=== PATIENT | male | born 1990 | race Caucasian/White ===

== ENCOUNTER 2019-06-02 21:38 | Inpatient (IN) | payer MEDICAID, OTHER ==
[~2019-06-02] VITALS: Ht 172.7 cm; Wt 63.5 kg
[2019-06-02 21:38] VITALS: BP 131/86
[2019-06-02] MEDS ORDERED: NACL 0.9% 1,000 ML IV ONE (21:50)
--- NOTE | 2019-06-02 21:50 | NUR ---
29 Y/O MALE BIB FRIEND C/O FALL/LACERATION TO HEAD. PT. AND FRIENDS WERE DRINKING. GIRLFRIEND FOUND HIM DOWN ON THE FLOOR S/P FALL AFTER DRINKING ALCOHOL. PATIENT IS ALTERED AND RESPONDS TO NAME AND VOICE; GCS: 10. PUPILS ARE REACTIVE TO LIGHT. LEFT CONSTRICTS MORE THAN RIGHT APPROX 4MM. 2-3 CM LACERATION NOTED; STAPLED. 20 GUAGE ON LAC. NO ACTIVE BLEEDING AT THIS TIME. ERMD AWARE OF STATUS. SIDERAILS X1. PLACED ON MONITOR. ALLERGIES UNKNOWN AND PREVIOUS MEDICAL HX UNKNOWN
[2019-06-02 22:29] LABS: BASOPHILS % (AUTO) 0.1 % (0.0-2.0); EOSINOPHILS % (AUTO) 0.1 % (0.0-4.0); HEMOGLOBIN 15.4 g/dL (12.0-18.0); LYMPHOCYTES # (AUTO) 1.1 K/uL (2.0-11.5); LYMPHOCYTES % (AUTO) 17.5 % (20.5-51.1); MEAN CORPUSCULAR HEMOGLOBIN 31 pg (27-31); MEAN CORPUSCULAR HGB CONC 33 g/dL (33-37); MEAN CORPUSCULAR VOLUME 91.3 fL (80-94); MONOCYTES # (AUTO) 0.3 K/uL (0.8-1.0); NEUTROPHILS # (AUTO) 4.9 K/uL (1.8-7.7); NEUTROPHILS % (AUTO) 78.3 % (42.2-75.2); PLATELET COUNT (AUTO) 236 K/uL (140-450); RED BLOOD CELL COUNT(AUTO) 5.04 MIL/uL (4.20-6.10); WHITE BLOOD COUNT (AUTO) 6.3 K/uL (4.8-10.8)
[2019-06-02 22:39] LABS: ANION GAP 17.6 (8-16); CARBON DIOXIDE 25.7 mmol/L (21-32); POTASSIUM 3.3 mmol/L (3.5-5.1)
[2019-06-02 22:47] LABS: ALBUMIN 4.7 g/dL (3.4-5.0); TOTAL BILIRUBIN 0.8 mg/dL (0.0-1.0)
--- NOTE | 2019-06-02 23:50 | NUR ---
Patient will be admitted to care of DR. NATARAJAN . Admited to TELE. Will go to [id number]. Belongings list completed. Report to RUBEN LEWIS .
--- NOTE | 2019-06-02 23:50 | NUR ---
RECEIVED BEDSIDE REPORT FROM [facility]. PT IS AAOX1. ON ROOM AIR RESPIRATIONS ARE EQUAL AND UNLABORED. LUNG SOUNDS ARE CLEAR. PT SPEAKS CLEARLY BUT NOT COOPERATIVE AND LAUGHING WHEN ASKED QUESTIONS FREQUENTLY STICKS UP MIDDLE FINGER TO RN. GIRLFRIEND IS AT BEDSIDE. PT WITH SUPERFICIAL HEAD LACERATION WITH 2 FEDE DONE IN ER WILL TAKE PHOTOS. OTHER GRESHAM PT WITH SMALL BRUISE ON KNEE. RAC 20G PT KEEPS REMOVING IV IN ER. PT HAS RECEIVED APRROX 700CC OF NS. CAN AMBULATE WITH ASSIST. VS: 111/80 110 17, 97% RA, 97.8. MRSA SWAB OBTAINED. ORIENTED PT TO ROOM,STAFF,CALL LIGHT VISITING HOURS. WILL ROUND FREQUENTLY.
--- NOTE | 2019-06-03 00:13 | NUR ---
ORDERS RECEIVED FROM DR BUCHANAN. WILL F/U
[2019-06-03] MEDS ORDERED: ACETAMINOPHEN 325 MG TAB PO PRN (00:20)
[2019-06-03] MEDS ORDERED: LORazepam 2 MG/ML VIAL IM/IVP PRN (00:20)
[2019-06-03] MEDS ORDERED: DEXT 5% /NACL 0.9% 1,000 ML IV SCH (00:20)
[2019-06-03] MEDS ORDERED: ONDANSETRON 4 MG/2 ML VIAL IVP PRN (00:20)
[2019-06-03 00:30] VITALS: BP 111/80
[2019-06-03] MEDS ORDERED: KCL 20 MEQ/WATER INJ PREMIX 100 ML IV SCH (01:00)
[2019-06-03] MEDS ORDERED: POTASSIUM CHLORIDE 10 MEQ TABER PO SCH (01:00)
--- NOTE | 2019-06-03 01:30 | NUR ---
PATIENT REFUSED ALL MEDICATIONS. STATES, "I WANT TO GO HOME, I FEEL BETTER." I EXPLAINED HE NEEDS TO STAY TO MONITOR FOR WITHDRAWS DOCTOR WILL SEE HIM TODAY IN THE MORNING. PT STATES, "YOU KNOW WHAT FUCK YOU, FUCK THIS HOSPITAL I WANT TO GO HOME. LOOK AT MY LADY SHES COVERED IN BLOOD WE NEED TO GO." PT KEPT STANDING UP AND SPEAKING VIOLENTLY HE THREW THE BED MATTRESS ON FLOOR. KEPT LAUGHING WHENEVER I TRIED TO SPEAK. WILL PAGED REGARDING PT WANTING TO AMA.
--- NOTE | 2019-06-03 01:35 | NUR ---
SPOKE WITH DR BUCHANAN OK FOR HIM TO GO HOME IF SIGNING AMA. PT SIGN FORM. EXPLAINED ALL RISKED OF SIGNING AMA. VERBALIZED UNDERSTANDING. I REMOVED NAME BAND. REMOVED IV IV CATHER IS INTACT. PT WITH STEADY GAIT. PER GIRLFRIEND HER FAMILY WILL COME TO PICK THEM UP. EXPLAINED TO GIRLFRIEND SINCE HE SIGNED AMA THERE IS NO DISCHARGE INSTRUCTION FROM DOCTOR. PT TO CLEAN WOUND WITH NS AND PAT DRY. RETURN FOR ANY WORSENING S/S OF ALCOHOL OR S/S OF INFECTION SUCH REDNESS, COLORED DISCHARGE, SWELLING, FOUL SMELLING AND RETURN TO ER TO GET FEDE REMOVED.
--- NOTE | 2019-06-03 02:05 | NUR ---
PATIENT LEFT IN STABLE CONDITION. WHEELED OUT WITH GIRLFRIEND WHO IS AA0 X4. GIRLFRIEND DENIES DRINKING ANY ALCOHOL. ALL BELONGINGS WITH PATIENT.
[2019-06-03] MEDS ORDERED: POTASSIUM CHLORIDE 10 MEQ TABER PO ONE (05:00)
--- NOTE | 2019-06-03 08:50 | NUR ---
WOUND CARE CONSULT NOT DONE, PT. DISCHARGED.
[2019-06-03] MEDS ORDERED: MULTIVITAMIN-12 10 ML, THIAMINE 100 MG, MAGNESIUM SULFATE 50% 2,000 MG, FOLIC ACID 1 MG... IV SCH ×5 (09:00)
== END 2019-06-03 02:00 | disposition left against medical advice (07) | DRG 384 ==
LOC: MED 21:38 → MTU 23:29
PROVIDERS: ADMIT Internal Medicine Pulmonary Disease; ATTEND Internal Medicine Pulmonary Disease
PROC: 0HQ0XZZ Repair Scalp Skin, External Approach (ICD-10-PCS; principal; 2019-06-02)
DX: S01.01XA Laceration without foreign body of scalp, initial encounter (principal); F10.129 Alcohol abuse with intoxication, unspecified; W18.30XA Fall on same level, unspecified, initial encounter; Z53.21 Procedure and treatment not carried out due to patient leaving prior to being seen by health care provider; Y90.8 Blood alcohol level of 240 mg/100 ml or more; Y93.89 Activity, other specified; Y92.89 Other specified places as the place of occurrence of the external cause; Y99.8 Other external cause status
CPT/HCPCS: 36415; 70450; 80053; 85025; 87081; 96360; 99291; A9153; G0482; J2060; J3411; J3475; J3480; J3490; J7030

== ENCOUNTER 2019-06-11 18:09 | Emergency (ER) | payer OTHER ==
[~2019-06-11] VITALS: Ht 170.2 cm; Wt 53.5 kg
[2019-06-11 18:17] VITALS: BP 126/87
--- NOTE | 2019-06-11 18:27 | NUR ---
PT BIB SELF FOR STAPLE REMOVAL. PT HAD FEDE PLACED HERE LAST MONDAY. PAIN AT 2/10 WITH PALPATION, TX WITH MARIJUAN WITH RELIEF. VSS. ER TO SEE PT. MEDHX:COLIN RX:DENIES
--- NOTE | 2019-06-11 18:46 | NUR ---
Patient discharged with v/s stable. Written and verbal after care instructions given and explained. Patient verbalized understanding. Ambulatory with steady gait. All questions addressed prior to discharge. Advised to follow up with PMD.
== END 2019-06-11 18:46 | disposition home or self-care (01) ==
LOC: MED 18:09
DX: S01.01XD Laceration without foreign body of scalp, subsequent encounter (principal); X58.XXXD Exposure to other specified factors, subsequent encounter
CPT/HCPCS: 99281

== ENCOUNTER 2020-04-27 17:11 | Emergency (ER) | payer OTHER ==
[~2020-04-27] VITALS: Ht 170.2 cm; Wt 58.1 kg
[2020-04-27 17:18] VITALS: BP 139/95
--- NOTE | 2020-04-27 17:25 | NUR ---
C/O CP 11/11 POST ALCOHOL WITHDRAWS TODAY AND MAURIJUANA USE. PT AMBULATORY WITH STEADY GAIT. PT HR 76. BP WNL. PT ALERT AND AWAKE. ANSWERS QUESTIONS APPROPRIATELY. GCS 15. PUPILS PERRL. PT DENIES DRINKING TODAY. PT RESTLESS AND SHAKEY IN APPEARANCE
[2020-04-27] MEDS ORDERED: LORazepam 2 MG/ML VIAL IM ONE (17:40)
--- NOTE | 2020-04-27 17:43 | NUR ---
DR. LINDO AT BEDSIDE.
--- NOTE | 2020-04-27 18:05 | NUR ---
URINE COLLECTED AND LAB CALLED FOR CONSTRUCTION CODE ADMINISTRATOR.
[2020-04-27 18:37] LABS: BARBITURATE, URINE NEGATIVE ng/ml (NEG <=200); BENZODIAZEPINE, URINE NEGATIVE ng/mL (NEG <=200); CANNABINOID, URINE POSITIVE ng/mL (NEG <=50); COCAINE, URINE NEGATIVE ng/mL (NEG <=300); OPIATE, URINE NEGATIVE ng/mL (NEG <=2000); PHENCYCLIDINE SCREEN,URINE NEGATIVE ng/mL (NEG <=25)
[2020-04-27 19:04] VITALS: BP 139/95
--- NOTE | 2020-04-27 19:05 | NUR ---
Patient discharged with v/s stable. Written and verbal after care instructions given and explained. Patient alert, oriented and verbalized understanding of instructions. Ambulatory with steady gait. All questions addressed prior to discharge. ID band removed. Patient advised to follow up with PMD. Rx of ATIVAN given. Patient educated on indication of medication including possible reaction and side effects. Opportunity to ask questions provided and answered. PTS MOTHER WILL BE DRIVING HIM HOME. PT INSTRUCTED NOT TO DRINK ALCOHOL OR DRIVE WHEN TAKING ATIVAN.
== END 2020-04-27 19:04 | disposition home or self-care (01) ==
LOC: MED 17:11
DX: F41.0 Panic disorder [episodic paroxysmal anxiety] (principal); R25.1 Tremor, unspecified; F12.10 Cannabis abuse, uncomplicated
CPT/HCPCS: 80305; 96372; 99283; J2060

== ENCOUNTER 2020-06-25 21:20 | Emergency (ER) | payer OTHER ==
[~2020-06-25] VITALS: Ht 170.2 cm; Wt 56.7 kg
[2020-06-25 21:32] VITALS: BP 132/76
--- NOTE | 2020-06-25 21:34 | NUR ---
To ED bed 11
--- NOTE | 2020-06-25 21:40 | NUR ---
30 YO MALE BIB WITH C/C OF 3/10 LAC TO RIGHT POINTER FINGER KNUCKLE WITH BONE EXPOSURE. LACERATION OCCURRED 10 MINS PRIOR TO ARRIVAL WHILE OPENING A POCKET KNIFE. LAC 2 INCHES IN LENGTH AND 1 INCH DEEP. RIGHT RADIAL PULSE BOUNDING, DELAYED CAP REFILL >3, FINGER TIPS COOL TO TOUCH, LIMITED ROM OF POINTER FINGER, AND NUMBNESS. PT CANT RECALL LAST TDAP VACCINATION DENIES OTC MEDICATION. DENIES LIGHTHEADEDNESS OR DIZZINESS. BED LOCKED IN LOWEST POSITION, SIDE RAILS X1. HX: DENIES RX: DENIES NKA
--- NOTE | 2020-06-25 21:45 | NUR ---
EMT AT BEDSIDE CLEANING SITE.
--- NOTE | 2020-06-25 21:56 | NUR ---
ERMD AT BEDSIDE.
[2020-06-25] MEDS ORDERED: IBUPROFEN 800 MG TAB PO ONE (22:00)
[2020-06-25] MEDS ORDERED: ceFAZolin 1,000 MG VIAL IM ONE (22:00)
--- NOTE | 2020-06-25 22:02 | NUR ---
RAD AT BEDSIDE.
--- NOTE | 2020-06-25 23:03 | NUR ---
PT STATED " I SHOULD HAVE NEVER CAME", THREATENING TO LEAVE AMA. ERMD CALLED TO BEDSIDE TO EXPLAIN PLAN OF CARE AND THE NEED TO CONSULT A HAND SURGEON BEFORE PERFORMING LAC REPAIR. PT AGREED TO STAY.
[2020-06-25] MEDS ORDERED: LIDOCAINE MPF 1% 10 ML ONE (23:21)
--- NOTE | 2020-06-25 23:22 | NUR ---
ermd at bedside repairing lac
--- NOTE | 2020-06-25 23:36 | NUR ---
EMT AT BEDSIDE SPLINTING FINGER.
[2020-06-26] VITALS: BP 144/76
== END 2020-06-26 | disposition home or self-care (01) ==
LOC: MED 21:20
DX: S61.210A Laceration without foreign body of right index finger without damage to nail, initial encounter (principal); Z71.6 Tobacco abuse counseling; W26.0XXA Contact with knife, initial encounter; Y93.89 Activity, other specified; Y92.89 Other specified places as the place of occurrence of the external cause; Y99.8 Other external cause status
CPT/HCPCS: 12002; 73130; 90471; 90715; 96372; 99284; J0690; J2001; Q0092

== ENCOUNTER 2020-07-04 10:43 | Emergency (ER) | payer OTHER ==
[~2020-07-04] VITALS: Ht 170.2 cm; Wt 56.7 kg
[2020-07-04 10:47] VITALS: BP 132/91
--- NOTE | 2020-07-04 10:55 | NUR ---
PATIENT AMBULATED TO BED 4.
--- NOTE | 2020-07-04 11:05 | NUR ---
30 YEAR OLD MALE COMES FOR WOUND CHECK FROM CUTTING FINGER X 2 WEEKS AGO. PT STATES HE HAS NOT SEEN ORTHOPEDIC DOCTOR. SITE IS CLEAN, DRY, WITH SUTURES NO REDNESS OR INFLAMMATION. PT AOX4, BREATHING EVEN AND UNLABORED, SKIN WARM AND DRY. BED IN LOWEST POSITION, LOCKED, BED RAIL UPX1. PMH - DENIES ALLERGIES - NKA
--- NOTE | 2020-07-04 11:18 | NUR ---
APPLIED FINGER FROG SPLINT TO RIGHT 2ND DIGIT WITHOUT ANY ISSUES
--- NOTE | 2020-07-04 11:20 | NUR ---
Patient discharged with v/s stable. Written and verbal after care instructions about tendon injury given and explained. Patient verbalized understanding. Ambulatory with steady gait. All questions addressed prior to discharge. Advised to follow up with PMD.
[2020-07-04 11:24] VITALS: BP 132/91
== END 2020-07-04 11:20 | disposition home or self-care (01) ==
LOC: MED 10:43
DX: S61.210A Laceration without foreign body of right index finger without damage to nail, initial encounter (principal); F12.90 Cannabis use, unspecified, uncomplicated; Z48.01 Encounter for change or removal of surgical wound dressing; Z48.02 Encounter for removal of sutures; X58.XXXA Exposure to other specified factors, initial encounter; Y93.89 Activity, other specified; Y92.89 Other specified places as the place of occurrence of the external cause; Y99.8 Other external cause status
CPT/HCPCS: 99283

== ENCOUNTER 2021-08-31 08:56 | Emergency (ER) | payer OTHER ==
[~2021-08-31] VITALS: Ht 170.2 cm; Wt 55.3 kg
[2021-08-31 09:08] VITALS: BP 131/82
--- NOTE | 2021-08-31 09:13 | NUR ---
ermd assessing pt in triage.
--- NOTE | 2021-08-31 09:21 | NUR ---
ekg at bedside
[2021-08-31] MEDS ORDERED: FAMO-92 PO (09:41)
--- NOTE | 2021-08-31 10:42 | NUR ---
Patient discharged with v/s stable. Written and verbal after care instructions given and explained. Patient alert, oriented and verbalized understanding of instructions. Ambulatory with steady gait. All questions addressed prior to discharge. ID band removed. Patient advised to follow up with PMD. Rx of famotidine (sent) given. Patient educated on indication of medication including possible reaction and side effects. Opportunity to ask questions provided and answered.
[2021-08-31 10:43] VITALS: BP 131/82
== END 2021-08-31 10:42 | disposition home or self-care (01) ==
LOC: MED 08:56
DX: R07.9 Chest pain, unspecified (principal)
CPT/HCPCS: 93005; 99283